=== PATIENT | male | born 2005 | race Two or more races ===

== ENCOUNTER 2024-09-12 15:46 | Emergency (ER) | payer MEDICAID, SELFPAY ==
[2024-09-12 16:07] VITALS: BP 122/68; PULSE 81; RESP 16; TEMP 36.9; O2SAT 97; BMI 24.1
--- NOTE | 2024-09-12 16:48 | PD.EDDENTL ---
ED Dental RME/HPI General Chief complaint: Dental/Oral/Throat Stated complaint: TOOTH ABCESS Time Seen by Provider: 09/12/24 16:44 Arrival date/time: 09/12/24 15:46 This is a 18-year-old male that comes in with complaints of possible dental abscess. Patient states that he cracked his tooth a couple weeks ago and since then has been hurting. Patient noticed the right side of his cheek is a little swollen. Patient reports he was having a lot of pain last night. Patient has an appointment with a dentist on September 18, 2024 Related Data Previous Rx's ?Medication ?Instructions ?Recorded ibuprofen 600 mg tablet 600 mg PO Q6H #30 tabs 12/08/22 amoxicillin 875 mg-potassium 1 tab PO Q12H #14 tabs 09/12/24 clavulanate 125 mg tablet ibuprofen 800 mg tablet 800 mg PO Q6H PRN pain #14 tabs 09/12/24 Allergies Allergy/AdvReac Type Severity Reaction Status Date / Time NKA* Allergy Uncoded 03/15/10 14:05 Review of Systems Review of Systems Systems Reviewed: All systems reviewed, normal except as documented Past Medical History Social History SMOKING STATUS: Never smoker ED Exam General General appearance: Present alert and in no apparent distress Head Head exam: Present atraumatic Eye Eye exam: Present normal appearance, PERRL and EOMI ENT ENT exam: Present mucous membranes moist and other (mild right side facial swelling, no erythema, bottom gum on right side slightly erythema ) Neck Neck exam: Present normal inspection, full ROM and trachea midline Chest Chest inspection: Present normal inspection and symmetric chest wall rise Respiratory Respiratory exam: Present normal lung sounds bilaterally Cardiovascular Cardiovascular exam: Present regular rate, normal rhythm and normal heart sounds Abdominal Exam Abdominal exam: Present soft Extremities Exam Extremities exam: Present normal inspection and full ROM Back Exam Back exam: Present normal inspection and full ROM Neurological Exam Neurological exam: Present alert, oriented X3 and CN II-XII intact Psychiatric Psychiatric exam: Present normal affect and normal mood Skin Skin exam: Present warm, dry, intact and normal color Course Quality Measures none Orders Category Date Time Status Acetaminophen Tab [Tylenol ES Tab] Med 09/12/24 16:47 Discontinued 1,000 mg PO X1 ONE Amoxicillin/Pot Clav 875 [Augmentin 875] Med 09/12/24 16:47 Discontinued 1 tab PO X1 ONE Ibuprofen Tab [Motrin Tab] Med 09/12/24 16:47 Discontinued 800 mg PO X1 ONE Vital Signs Vital signs: Vital Signs Temperature 98.4 F 09/12/24 16:07 Pulse Rate 81 09/12/24 16:07 Respiratory Rate 16 09/12/24 16:07 Blood Pressure 122/68 09/12/24 16:07 Pulse Oximetry (%) 97 09/12/24 16:07 Oxygen Delivery Method Room Air 09/12/24 16:07 Dental / Oral Patient data External records reviewed:: [facility] previous records Clinical information provided by:: patient Social determinants that could affect healthcare access:: none Patient has the following chronic illnesses:: none How is presenting disease/condition affected by chronic disease/condition?: no chronic disease Evaluation data The following diagnostics were reviewed and interpreted by me:: other (specify) (none) Lab and/or radiology exams considered but not ordered:: none Interpretation Summary: none Medications / Prescriptions Medications or Prescriptions considered but not ordered:: none Medication administrations:: Medication Administration History Discontinued Medications Acetaminophen (Acetaminophen 500 Mg Tablet) 1,000 mg PO X1 ONE Stop: 09/12/24 16:48 Last Admin: 09/12/24 16:52 Dose: 1,000 mg Documented By: OA Amoxicillin/Clavulanate Potassium (Amoxicillin/Pot Clav 875 Tablet) 1 tab PO X1 ONE Stop: 09/12/24 16:48 Last Admin: 09/12/24 16:52 Dose: 1 tab Documented By: OA Ibuprofen (Ibuprofen Tab 400 Mg Tablet) 800 mg PO X1 ONE Stop: 09/12/24 16:48 Last Admin: 09/12/24 16:52 Dose: 800 mg Documented By: OA see [facility] Consultations Consultation(s) initiated? (list below): No Diagnosis Most likely diagnosis given after review of the tests above:: early dental abscess, cellulitis Admission Indicated Admission indicated?: not indicated Admission Request Was there a request for admission?: No Disposition Plan Disposition Plan: Discharge Discharge Attestation Discharge Attestation: The patient and all family members were given an opportunity to ask questions and understood the discharge instructions. Discharge instructions specifically effects, indications for sooner follow up or return to the emergency department, and the expected course of current diagnosis. Patient condition: Stable Discharge Plan Plan Patient Disposition: HOME (Self Care) Patient condition on transfer: Stable Prescriptions/Referrals Prescriptions/Med Rec: New ibuprofen 800 mg tablet 800 mg PO Q6H PRN (Reason: pain) Qty: 14 0RF amoxicillin-pot clavulanate 875-125 mg tablet 1 tab PO Q12H Qty: 14 0RF No Action ibuprofen 600 mg tablet 600 mg PO Q6H Qty: 30 0RF Problem List Clinical Impression: Toothache, Cellulitis Patient/Caregiver Discharge Instructions Discharge Activity: activity as tolerated Education Materials: ED Cellulitis, ED Dental Pain Additional Instructions: Keep scheduled appointment with dentist. Take medications as prescribed. Come back to the emergency room if symptoms change or worsen. Print Language: Croatian Stand Alone Forms: Marian Award Info., Patient Portal Info Letter PA/[employer]INK[employer] INSPECTOR Supervising Physician PA/[employer] INSPECTOR Supervising Physician: jerri
[2024-09-12] MEDS: IBUPROFEN TAB 400 MG TABLET 800 MG PO (16:52)
[2024-09-12] MEDS: AMOXICILLIN/POT CLAV 875 TABLET 1 TAB PO (16:52)
[2024-09-12] MEDS: ACETAMINOPHEN 500 MG TABLET 1000 MG PO (16:52)
== END 2024-09-12 17:46 | disposition home or self-care (01) ==
PROVIDERS: Emergency Provider Emergency Medicine
DX: K12.2 Cellulitis and abscess of mouth (principal)
CPT/HCPCS: 99282; A9270